=== PATIENT | male | born 1970 | race Caucasian/White ===

== ENCOUNTER 2019-03-23 05:34 | Day surgery (SDC) | payer OTHER ==
[~2019-03-23] VITALS: Ht 188 cm; Wt 86.6 kg
--- NOTE | ~2019-03-23 | OP ---
PATIENT NAME: MANJIT ANGULO MEDICAL RECORD: [id number] :72 [facility] DATE: SURGEON: SAMIRA ORDOÑEZ MD DATE OF OPERATION: 03/23/2019 PREOPERATIVE DIAGNOSIS: Symptomatic large subcutaneous right back mass. Please see dimensions below. 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 PROCEDURE: Excision of large symptomatic 8.0 x 8.5 cm intramuscular lipoma of the right back. SURGEON: Samira Ordoñez MD INFORMATION SECURITY CONSULTANT: None. BLOOD LOSS: Less than 25 cc. ANESTHESIA: General. COMPLICATIONS: None. The risks, possible complications and alternatives to the procedure were explained to the patient. He elects to proceed. The discussion specifically included, but was not limited to, bleeding requiring emergency reoperation, infection, recurrence of the lipoma and the possibility that the lipoma could degenerate into a malignancy, and also nerve injury. I saw the patient in the holding area. He identified the subcutaneous mass for me and I marked it. We confirmed that this was the only mass that we had talked about removing. OPERATIVE COURSE: The patient was conveyed to the operating room electively on 03/23/2019. General anesthesia was induced by anesthesia staff. The patient was positioned prone. The back was sterilely prepped and draped. Transverse incision was accomplished overlying the mass after measurements had been obtained. I dissected down through the muscular layer and identified lipomatous tissue, which was septated. It was removed in a piecemeal fashion as the lipoma went down to the chest wall as well as the spinous processes of the thoracic spine. I removed all the lipomatous tissue that I could identify. Some surrounding connective tissue was excised as well in order to hopefully prevent a recurrence of this intramuscular lipoma, which has a higher recurrence rate than a simple subcutaneous lipoma. Meticulous hemostasis was achieved with electrocautery. I irrigated with hydrogen peroxide. I did not think that we need to leave a drain as there was not a significant space for a hematoma or seroma to accumulate. The muscular layer was closed with interrupted 3-0 Vicryl sutures. The subcutaneous tissues were closed with interrupted 3-0 Vicryls. The skin was closed with a running intracuticular 3-0 Vicryl. Benzoin and Steri-Strips were applied and an outer dressing. The patient was then conveyed to the post-anesthesia care unit. OPERATIVE REPORT [id number] MANJIT ANGULO The patient is going to be dismissed back to custodial with Mills for pain. He may not need the entire script of Mills. There is no need for him to follow up with me in the office unless he develops a complication related to this operative procedure. I can see him on rounds out at the custodial on my GI clinic days. Tomorrow, the outer dressing can be removed and it would leave him with Steri-Strips, which I would like to be kept in place until I removed them or until they fall off on their own. All the sutures are dissolvable sutures and subcutaneous or deeper, so there are no sutures to be removed. TRANSINT:[id number] Voice Confirmation ID: [id number] DOCUMENT ID: [id number] cc: SUSAN Kan, [place] SAMIRA Leach MD CC: [id number] DICTATION DATE: 03/23/19 1052 [place]: 03/23/19 1849 [facility] 03/23/19 [id number] [place] [address]
[2019-03-23] MEDS ORDERED: BUSPAR10 MG PO (07:01)
[2019-03-23] MEDS ORDERED: CALCIUM 250+D T1 TAB PO (07:02)
[2019-03-23] MEDS ORDERED: IBUPROFEN600 MG PO (07:03)
[2019-03-23] MEDS ORDERED: LISINOPRIL20 MG PO (07:03)
[2019-03-23] MEDS ORDERED: OMEPRAZOLE20 M1 PO (07:04)
[2019-03-23] MEDS ORDERED: XOPENEX HFA15 GM INH (07:04)
[2019-03-23 07:07] VITALS: BP 132/85; Ht 188 cm; Wt 86.6 kg
[2019-03-23 07:34] LABS: HEMATOCRIT 43.5 % (42.0-54.0); HEMOGLOBIN 14.1 g/dL (13.5-17.5); MCH 30.9 pg (26.0-34.0); MCHC 32.4 g/dL (31.0-37.0); MCV 95.2 fL (80.0-100.0); MEAN PLATELET VOLUME 11.1 fL (7.4-10.4); RBC 4.57 10x6/uL (4.20-6.10); RDW 13.2 % (11.5-14.5); WBC 9.2 10x3/uL (4.8-10.8)
--- NOTE | 2019-03-23 10:53 | NUR ---
AT 1045 PATIENT ALERT X4 AND COOPERTATIVE. NO BEHAVIOR ISSUES. TWO POINT RESTRAINTS REMOVED AT THIS TIME. WILL CONTINUE TO MONITOR.
--- NOTE | 2019-03-23 11:11 | NUR ---
1105-FULL LIQUID TRAY TO ROOM
--- NOTE | 2019-03-23 11:11 | NUR ---
1058-REC'D FROM RR. AWAKE AND ALERT. VSS.DENIES PAIN. DRESSING CDI. IC WATER AT BEDSIDE,CL IN EASY REACH. CO'S AT BEDSIDE
--- NOTE | 2019-03-23 12:11 | NUR ---
1200 REPORT FROM HOA TAMEZ RN.
--- NOTE | 2019-03-23 12:27 | NUR ---
1220 DR. TIAGO CORLEY.
== END 2019-03-23 13:40 ==
LOC: D.OPS 05:34
PROVIDERS: Anesthesiology; ATTEND Surgery
DX: D17.9 Benign lipomatous neoplasm, unspecified (principal); J44.9 Chronic obstructive pulmonary disease, unspecified; R03.0 Elevated blood-pressure reading, without diagnosis of hypertension